=== PATIENT | female | born 2000 | race Caucasian/White ===

== ENCOUNTER → 2023-05-15 | Outpatient (CLI) | payer BC ==
--- NOTE | 2023-05-15 17:01 | MR ---
EXAMINATION TYPE: MR knee LT wo con DATE OF EXAM: 05/15/2023 COMPARISON: NONE HISTORY: Left knee pain, painful kneecap, locking, and swelling for about 5 years. ACL sprain per ord er. TECHNIQUE: Multiplanar, multisequence images of the knee is performed without IV contrast. FINDINGS: MEDIAL MENISCUS: Irregular increased signal posterior horn extends to the superior articular surface coronal image 21. LATERAL MENISCUS: Anterior and posterior horns are intact without tear. CRUCIATE LIGAMENTS: The posterior cruciate ligament is intact and unremarkable. Intact ACL is not hood ntified. Portion of displaced fragment noted or suspected sagittal images 17 and 18 immediately anter ior to the PCL. COLLATERAL LIGAMENTS: The medial collateral ligament and lateral collateral ligament complex are inta ct and unremarkable. EXTENSOR MECHANISM: Visualized quadriceps and patellar tendons are intact. EFFUSION: Large size suprapatellar joint effusion. POPLITEAL CYST: No popliteal/chacon cyst. TRICOMPARTMENT SPACES: Tricompartment joint spaces are preserved. No significant spurring. CARTILAGE: Tricompartmental articular cartilage is maintained. BONE MARROW SIGNAL: No focal abnormal marrow signal is appreciated. OTHER: No additional significant abnormality is appreciated. IMPRESSION: 1. Complete displaced ACL tear. 2. Full-thickness tear posterior horn of medial meniscus. 3. Large suprapatellar joint effusion. 4. Intact MCL. No significant osseous edema or bone marrow contusion injury.
== END | disposition home or self-care (01) ==
LOC: RADMRIMAIN 15:50
PROVIDERS: ATTEND Orthopaedic Surgery
DX: S83.512D Sprain of anterior cruciate ligament of left knee, subsequent encounter (principal); S83.242A Other tear of medial meniscus, current injury, left knee, initial encounter; M25.462 Effusion, left knee